=== PATIENT | male | born 1990 | race Two or more races ===

== ENCOUNTER 2021-01-20 09:59 | Inpatient (IN) | payer OTHER ==
[~2021-01-20] VITALS: Ht 167.6 cm; Wt 60.7 kg
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
--- NOTE | 2021-01-20 10:12 | NUR ---
COVID SWAB COLLECTED AND WALKED TO LAB.
--- NOTE | 2021-01-20 10:13 | NUR ---
TELEPHONE CALL FROM [facility]LOOD [facility]ANK STATING THAT THEY WILL NOT SEND EMERGENCY RELEASE BLOOD W/O PURPLE SLIP FROM NURSE. PRIMARY RN UPDATED.
[2021-01-20] MEDS ORDERED: PRED1TAB19 PO (10:17)
[2021-01-20] MEDS ORDERED: OMEP-110 PO (10:17)
[2021-01-20] MEDS ORDERED: METO5TAB57 PO (10:17)
[2021-01-20] MEDS ORDERED: FERR324T5 PO (10:17)
[2021-01-20] MEDS ORDERED: LEVE500T53 PO (10:17)
[2021-01-20] MEDS ORDERED: ZINC100T PO (10:17)
[2021-01-20] MEDS ORDERED: PANTOPRAZOLE 80 MG in SODIUM CHLORIDE 0.9% 50 ML IV ONE (10:30)
[2021-01-20] MEDS ORDERED: PANTOPRAZOLE 80 MG in SODIUM CHLORIDE 0.9% 100 ML IV SCH (10:30)
--- NOTE | 2021-01-20 10:34 | NUR ---
PT MOVED TO TRAUMA 4, ASSUMED PT CARE.
[2021-01-20 10:39] LABS: BASOPHILS % (AUTO) 1 % (0-1); EOSINOPHILS % (AUTO) 1 % (1-7); LYMPHOCYTES % (AUTO) 31 % (22-44); MEAN CORPUSCULAR HEMOGLOBIN 26.6 pg (27.5-34.5); MEAN CORPUSCULAR HGB CONC 32.9 g/dL (33.2-36.2); MONOCYTES % (AUTO) 9 % (2-9); NEUTROPHILS % (AUTO) 58 % (42-75); PLATELET COUNT 287 x10^3/uL (130-400); RED BLOOD COUNT 3.66 x10^6/uL (4.38-5.82); RED CELL DISTRIBUTION WIDTH 16.5 % (9.4-14.8)
[2021-01-20 10:46] LABS: ALANINE AMINOTRANSFERASE 17 U/L (12-78); ALBUMIN 2.8 g/dL (3.4-5.0); CALCIUM 8.2 mg/dL (8.5-10.1); CHLORIDE 108 mmol/L (98-107)
[2021-01-20 10:48] LABS: ALKALINE PHOSPHATASE 48 U/L (45-117); BILIRUBIN,TOTAL 2.4 mg/dL (0.2-1.0); TOTAL PROTEIN 4.9 g/dL (6.4-8.2)
[2021-01-20 10:56] LABS: ANION GAP 3 mmol/L (5-15)
[2021-01-20 11:17] VITALS: BP 108/57
[2021-01-20 11:27] VITALS: BP 89/45
[2021-01-20] MEDS ORDERED: NOREPINEPHRINE 8 MG in SODIUM CHLORIDE 0.9% 242 ML IV PRN ×2 (11:30→14:00)
[2021-01-20 11:50] VITALS: BP 119/53
--- NOTE | 2021-01-20 11:50 | NUR ---
PT TO CT WITH RN ESCORT.
--- NOTE | 2021-01-20 12:04 | NUR ---
PT RTN FROM CT, TOLLERATED WELL.
[2021-01-20 12:08] VITALS: BP 138/81
[2021-01-20] MEDS ORDERED: OMNIPAQUE 350 MG/ML, 100ML BOTTLE ONE (12:12)
--- NOTE | 2021-01-20 12:30 | NUR ---
DR GOOD AT BEDSIDE FOR CENTRAL LINE PLACEMENT. DR GOOD EXPLAINED PROCEDURE TO PT. PT VERBALIZES UNDERSTANDING.
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
[2021-01-20] MEDS ORDERED: FENTANYL PF 100 MCG/2ML ONE (13:01)
[2021-01-20] MEDS: FENTANYL PF 100 MCG/2ML IVPush PRN ×2 (13:02→15:48)
--- NOTE | 2021-01-20 13:23 | NUR ---
ZIEGLER CATHETER INSERTED W/O DIFFICULTY. PER DR CHAVIS BLADDER IS VERY FULL AND DISTENDED. URINE DRAINED AT 250ML AT A TIME, WITH BP CHECKS. PT TOLLERATING WELL.
--- NOTE | 2021-01-20 13:24 | NUR ---
DR HARRIS AT BEDSIDE.
[2021-01-20 13:45] LABS: BASOPHILS % (AUTO) 1 % (0-1); EOSINOPHILS % (AUTO) 1 % (1-7); LYMPHOCYTES % (AUTO) 30 % (22-44); MEAN CORPUSCULAR HGB CONC 33.6 g/dL (33.2-36.2); MONOCYTES % (AUTO) 9 % (2-9); NEUTROPHILS % (AUTO) 60 % (42-75); PLATELET COUNT 222 x10^3/uL (130-400); RED BLOOD COUNT 4.27 x10^6/uL (4.38-5.82); RED CELL DISTRIBUTION WIDTH 16.5 % (9.4-14.8)
--- NOTE | 2021-01-20 13:46 | NUR ---
DR LOPEZ AT BEDSIDE. PT ASSESSMENT REVIEWED AND QUESTIONS ANSWERED. POC DISCUSSED.
[2021-01-20] MEDS ORDERED: MORP-52 PO (13:59)
[2021-01-20] MEDS ORDERED: MORPHINE IR PO (13:59)
--- NOTE | 2021-01-20 13:59 | NUR ---
SBAR RPT TO BIOMETRICS ANALYST, RIYA.
[2021-01-20] MEDS ORDERED: PROPOFOL 10 MG/ML, 20ML IVPush ONE (14:00)
[2021-01-20] MEDS ORDERED: PROPOFOL 10 MG/ML, 20ML ONE (14:10)
[2021-01-20] MEDS ORDERED: KETAMINE 10 MG/ML, 20ML ONE (14:12)
[2021-01-20] MEDS: SODIUM CHLORIDE 0.9% 1,000 ML IV SCH (14:48)
[2021-01-20 15:18] LABS: HCT (SEDRATE) 37.2 % (39.2-51.8)
[2021-01-20] MEDS: LEVETIRACETAM 500 MG in SODIUM CHLORIDE 0.9% 100 ML IV SCH (15:42)
[2021-01-20] MEDS ORDERED: KETAMINE 10 MG/ML, 20ML IV ONE (16:00)
[2021-01-20] MEDS ORDERED: methylPREDNISolone SOD SUCC 40 MG/ML ONE (16:01)
[2021-01-20] MEDS: methylPREDNISolone SOD SUCC 40 MG/ML IV SCH (16:04)
--- NOTE | 2021-01-20 16:10 | NUR ---
TASK RN NOTE: PT SITTING UP, RESPIRATIONS EVEN AND UNLABORED ON NC O2. NAD NOTED AT THIS TIME. PT VERBALIZES DECREASE IN PAIN FOLLOWING MED ADMINISTRATION BY PRIMARY RN. PT MAKES CONVERSATION WITH OFFICERS, WHO REMAIN AT BEDSIDE. SIDE RAILS UP, CUFFS IN PLACE.
[2021-01-20 16:55] LABS: MICROSCOPIC AUTO
[2021-01-20] MEDS ORDERED: DIPHENHYDRAMINE 50 MG/ML, 1ML ONE (16:57)
--- NOTE | 2021-01-20 16:57 | NUR ---
CALLED DR LOPEZ AND UPDATED ON PT PROGRESS. NEW ORDER REC'D FOR JILL. PLAN IS FOR PT TO BE MONITORED CLOSELY OVERNIGHT IN ICU.
[2021-01-20] MEDS: DIPHENHYDRAMINE 50 MG/ML, 1ML IVPush PRN (17:12)
--- NOTE | 2021-01-20 17:45 | NUR ---
PT TRANSFERED ONTO HOSPITAL BED FOR COMFORT.
[2021-01-20] MEDS ORDERED: HYDROmorphone 1 MG/ML, 1ML INJ ONE (19:16)
--- NOTE | 2021-01-20 19:16 | NUR ---
SBAR RPT TO VENESSA GAITAN.
--- NOTE | 2021-01-20 19:22 | NUR ---
REPORT FROM ANGELA ASSUMED CARE OF PT, PT WRITHING IN PAIN, MEDICATED FOR PAIN AT THIS TIME
[2021-01-20] MEDS: HYDROmorphone 2 MG/ML, 1ML IVPush PRN (19:24)
[2021-01-20] MEDS ORDERED: ONDANSETRON 2MG/ML, 2ML ONE (19:25)
[2021-01-20] MEDS: ONDANSETRON 2MG/ML, 2ML IVPush PRN (19:29)
--- NOTE | 2021-01-20 19:29 | NUR ---
MEDICATED PER MAR FOR NAUSEA
--- NOTE | 2021-01-20 20:12 | NUR ---
pt in nad resting with guards at bs
--- NOTE | 2021-01-20 21:03 | NUR ---
report to kendall in ccu to room with 2 rns and 2 guards
[2021-01-20] MEDS: PANTOPRAZOLE 40 MG IV IVPush SCH (22:04)
[2021-01-21] MEDS: HYDROmorphone 2 MG/ML, 1ML IVPush PRN ×5 (01:05→21:42)
[2021-01-21] MEDS: SODIUM CHLORIDE 0.9% 1,000 ML IV SCH ×2 (02:30→17:22)
[2021-01-21] MEDS: methylPREDNISolone SOD SUCC 40 MG/ML IV SCH ×2 (04:04→15:18)
[2021-01-21] MEDS: LEVETIRACETAM 500 MG in SODIUM CHLORIDE 0.9% 100 ML IV SCH ×2 (04:04→15:17)
[2021-01-21] MEDS: DIPHENHYDRAMINE 50 MG/ML, 1ML IVPush PRN ×4 (04:37→23:12)
[2021-01-21 04:39] LABS: BASOPHILS % (AUTO) 0 % (0-1); EOSINOPHILS % (AUTO) 0 % (1-7); LYMPHOCYTES % (AUTO) 22 % (22-44); MEAN CORPUSCULAR HEMOGLOBIN 28.5 pg (27.5-34.5); MEAN PLATELET VOLUME 7.1 fL (7.4-10.4); MONOCYTES % (AUTO) 8 % (2-9); NEUTROPHILS % (AUTO) 70 % (42-75); PLATELET COUNT 222 x10^3/uL (130-400); RED BLOOD COUNT 4.25 x10^6/uL (4.38-5.82); RED CELL DISTRIBUTION WIDTH 16.1 % (9.4-14.8)
[2021-01-21 04:43] LABS: ALBUMIN 2.8 g/dL (3.4-5.0); ANION GAP 4 mmol/L (5-15); CALCIUM 8.1 mg/dL (8.5-10.1); CHLORIDE 104 mmol/L (98-107)
[2021-01-21 04:46] LABS: ALANINE AMINOTRANSFERASE 21 U/L (12-78); ALKALINE PHOSPHATASE 52 U/L (45-117); BILIRUBIN,TOTAL 1.7 mg/dL (0.2-1.0); CREATININE 0.73 mg/dL (0.7-1.3); TOTAL PROTEIN 5.2 g/dL (6.4-8.2)
[2021-01-21 05:05] LABS: ANISOCYTOSIS 1+; OVALOCYTES 1+; POLYCHROMASIA 1+
[2021-01-21 05:12] LABS: <PLATELET ESTIMATE> ADEQUATE; <PLT MORPHOLOGY> NORMAL PLT MORPH
[2021-01-21] MEDS: ONDANSETRON 2MG/ML, 2ML IVPush PRN ×2 (08:32→19:47)
[2021-01-21] MEDS: PANTOPRAZOLE 40 MG IV IVPush SCH ×2 (08:32→18:30)
[2021-01-21] MEDS: DICYCLOMINE 10 MG CAPSULE PO PRN (14:25)
[2021-01-21 16:20] VITALS: BP 102/62
[2021-01-21 18:38] VITALS: BP 112/65
[2021-01-21 18:57] VITALS: BP 107/71
[2021-01-21 19:51] VITALS: BP 114/66
[2021-01-21 20:06] VITALS: BP 115/58
[2021-01-21] MEDS ORDERED: OCTREOTIDE 100MCG/ML, 1ML (0.1MG/ML) SQ STA (21:11)
[2021-01-21] MEDS ORDERED: OCTREOTIDE 500 MCG in SODIUM CHLORIDE 0.9% 99 ML IV ONE (21:18)
[2021-01-21] MEDS ORDERED: OCTREOTIDE 50 MCG/ML, 1ML (0.05MG/ML) IVPush STA (21:20)
[2021-01-22] MEDS: LEVETIRACETAM 500 MG in SODIUM CHLORIDE 0.9% 100 ML IV SCH (03:28)
[2021-01-22] MEDS: methylPREDNISolone SOD SUCC 40 MG/ML IV SCH ×2 (03:29→15:09)
[2021-01-22] MEDS: HYDROmorphone 2 MG/ML, 1ML IVPush PRN ×2 (03:30→09:22)
[2021-01-22 04:12] LABS: BASOPHILS % (AUTO) 0 % (0-1); EOSINOPHILS % (AUTO) 0 % (1-7); LYMPHOCYTES % (AUTO) 18 % (22-44); MEAN CORPUSCULAR HEMOGLOBIN 28.6 pg (27.5-34.5); MEAN CORPUSCULAR HGB CONC 34.1 g/dL (33.2-36.2); MEAN PLATELET VOLUME 7.6 fL (7.4-10.4); MONOCYTES % (AUTO) 8 % (2-9); NEUTROPHILS % (AUTO) 75 % (42-75); PLATELET COUNT 237 x10^3/uL (130-400); RED BLOOD COUNT 5.02 x10^6/uL (4.38-5.82); RED CELL DISTRIBUTION WIDTH 16.2 % (9.4-14.8)
[2021-01-22 04:14] LABS: ANION GAP 5 mmol/L (5-15); BILIRUBIN, DIRECT 0.4 mg/dL (0.1-0.2); CHLORIDE 103 mmol/L (98-107)
[2021-01-22 04:15] LABS: BILIRUBIN,INDIRECT 1.5 mg/dL (0.0-2.0); BILIRUBIN,TOTAL 1.9 mg/dL (0.2-1.0)
[2021-01-22 04:28] VITALS: BP 106/76
[2021-01-22] MEDS: DIPHENHYDRAMINE 50 MG/ML, 1ML IVPush PRN ×4 (04:44→21:12)
[2021-01-22] MEDS: PANTOPRAZOLE 40 MG IV IVPush SCH ×2 (05:57→18:24)
[2021-01-22] MEDS: SODIUM CHLORIDE 0.9% 1,000 ML IV SCH (06:02)
[2021-01-22] MEDS: TAMSULOSIN 0.4 MG CAP.ER.24H PO SCH (09:46)
[2021-01-22] MEDS ORDERED: FERROUS SULFATE 325 MG TABLET ONE (10:19)
[2021-01-22] MEDS: FERROUS SULFATE 325 MG TABLET PO SCH (10:23)
[2021-01-22] MEDS: ONDANSETRON 2MG/ML, 2ML IVPush PRN (10:25)
[2021-01-22] MEDS: morphine SULFATE 15 MG TAB.IR PO PRN (14:55)
[2021-01-22] MEDS: METOCLOPRAMIDE 5 MG/ML, 2ML IVPush SCH ×2 (15:09→21:04)
[2021-01-22 19:37] VITALS: BP 105/66
[2021-01-22] MEDS: LEVETIRACETAM 500 MG TABLET PO SCH (21:04)
[2021-01-23 03:00] VITALS: BP 112/64
[2021-01-23] MEDS: METOCLOPRAMIDE 5 MG/ML, 2ML IVPush SCH ×4 (03:03→21:09)
[2021-01-23] MEDS: DIPHENHYDRAMINE 50 MG/ML, 1ML IVPush PRN ×3 (03:03→21:10)
[2021-01-23] MEDS: morphine SULFATE 15 MG TAB.IR PO PRN ×2 (03:03→15:33)
[2021-01-23] MEDS: methylPREDNISolone SOD SUCC 40 MG/ML IV SCH ×2 (03:44→15:31)
[2021-01-23 05:23] LABS: BASOPHILS % (AUTO) 0 % (0-1); EOSINOPHILS % (AUTO) 0 % (1-7); LYMPHOCYTES % (AUTO) 17 % (22-44); MEAN CORPUSCULAR HEMOGLOBIN 28.7 pg (27.5-34.5); MEAN CORPUSCULAR HGB CONC 33.9 g/dL (33.2-36.2); MEAN PLATELET VOLUME 7.7 fL (7.4-10.4); MONOCYTES % (AUTO) 8 % (2-9); NEUTROPHILS % (AUTO) 75 % (42-75); PLATELET COUNT 226 x10^3/uL (130-400); RED BLOOD COUNT 4.62 x10^6/uL (4.38-5.82); RED CELL DISTRIBUTION WIDTH 16.3 % (9.4-14.8)
[2021-01-23] MEDS: PANTOPRAZOLE 40 MG IV IVPush SCH (06:13)
[2021-01-23 06:48] VITALS: BP 127/78
[2021-01-23] MEDS: LEVETIRACETAM 500 MG TABLET PO SCH ×2 (08:09→21:09)
[2021-01-23] MEDS: FERROUS SULFATE 325 MG TABLET PO SCH (08:10)
[2021-01-23] MEDS: TAMSULOSIN 0.4 MG CAP.ER.24H PO SCH (08:10)
[2021-01-23] MEDS ORDERED: CHLORHEXIDINE 15 ML UDC ONE (09:16)
[2021-01-23] MEDS ORDERED: PROPOFOL 10 MG/ML, 20ML ONE (09:50)
[2021-01-23] MEDS ORDERED: hydrALAzine 20 MG/ML, 1ML IV PRN (10:30)
[2021-01-23] MEDS ORDERED: DIPHENHYDRAMINE 50 MG/ML, 1ML IVPush PRN ×2 (10:30)
[2021-01-23] MEDS ORDERED: FENTANYL PF 100 MCG/2ML IV PRN (10:30)
[2021-01-23] MEDS ORDERED: DIAZEPAM 5 MG/ML, 2ML IVPush PRN (10:30)
[2021-01-23] MEDS ORDERED: PROMETHAZINE 25 MG/ML, 1ML IVPush PRN (10:30)
[2021-01-23] MEDS ORDERED: HYDROmorphone 1 MG/ML, 1ML INJ IVPush PRN (10:30)
[2021-01-23] MEDS ORDERED: PROMETHAZINE 12.5 MG SUPP PR PRN (10:30)
[2021-01-23] MEDS ORDERED: MIDAZOLAM 1 MG/ML, 2ML IV PRN (10:30)
[2021-01-23] MEDS ORDERED: MEPERIDINE/PF 25MG/0.5ML IVPush PRN (10:30)
[2021-01-23] MEDS ORDERED: EPHEDRINE 50 MG/ML, 1ML IVPush PRN (10:30)
[2021-01-23] MEDS ORDERED: ONDANSETRON 2MG/ML, 2ML IVPush PRN (10:30)
[2021-01-23] MEDS ORDERED: ALBUTEROL SULFATE 2.5 MG/3 ML NPPB PRN (10:30)
[2021-01-23] MEDS ORDERED: OXYcodone 5 MG/5 ML ORAL.SOL UDC PO PRN (10:30)
[2021-01-23] MEDS ORDERED: LABETALOL 5MG/ML, 20ML IV PRN (10:30)
[2021-01-23 12:46] VITALS: BP 132/78
[2021-01-23 18:38] VITALS: BP 112/56
[2021-01-23] MEDS ORDERED: MESALAMINE 1,000 MG SUPP.RECT PR SCH (21:00)
[2021-01-23] MEDS: PANTOPRAZOLE 40MG TABLET PO SCH (21:09)
[2021-01-24 01:22] VITALS: BP 105/57
[2021-01-24] MEDS: morphine SULFATE 15 MG TAB.IR PO PRN ×4 (01:36→15:36)
[2021-01-24] MEDS: methylPREDNISolone SOD SUCC 40 MG/ML IV SCH ×2 (03:12→14:57)
[2021-01-24] MEDS: METOCLOPRAMIDE 5 MG/ML, 2ML IVPush SCH ×3 (03:13→14:57)
[2021-01-24] MEDS: DIPHENHYDRAMINE 50 MG/ML, 1ML IVPush PRN ×3 (03:13→15:35)
[2021-01-24] MEDS: DICYCLOMINE 10 MG CAPSULE PO PRN (05:11)
[2021-01-24] MEDS: PANTOPRAZOLE 40MG TABLET PO SCH ×2 (05:11→15:36)
[2021-01-24 06:40] VITALS: BP 111/65
[2021-01-24] MEDS: TAMSULOSIN 0.4 MG CAP.ER.24H PO SCH (08:13)
[2021-01-24] MEDS: FERROUS SULFATE 325 MG TABLET PO SCH (08:14)
[2021-01-24] MEDS: LEVETIRACETAM 500 MG TABLET PO SCH (08:14)
[2021-01-24] MEDS ORDERED: PANT40TA6 PO (10:45)
[2021-01-24] MEDS ORDERED: DICY10CA3 PO (10:45)
[2021-01-24] MEDS ORDERED: TAMS-11 PO (10:45)
[2021-01-24] MEDS ORDERED: [UNRECOGNIZED DRUG - CODE] PR (10:45)
[2021-01-24] MEDS ORDERED: PRED20TA PO (10:51)
[2021-01-24 15:11] VITALS: BP 109/57
== END 2021-01-24 18:26 | DRG 385 ==
LOC: ED 10:53 → SUATTDRO 11:06 → EDIP 11:09 → CCU 21:17 → 4WST 01-21 16:43 → CCU 01-21 20:30 → 4NW 01-22 15:20
PROVIDERS: ADMIT Internal Medicine; ATTEND Internal Medicine
PROC: 30233R1 Transfusion of Nonautologous Platelets into Peripheral Vein, Percutaneous Approach (ICD-10-PCS; 2021-01-20)
PROC: 0DJ08ZZ Inspection of Upper Intestinal Tract, Via Natural or Artificial Opening Endoscopic (ICD-10-PCS; 2021-01-20)
PROC: 0DJD8ZZ Inspection of Lower Intestinal Tract, Via Natural or Artificial Opening Endoscopic (ICD-10-PCS; 2021-01-20)
PROC: 02HV33Z Insertion of Infusion Device into Superior Vena Cava, Percutaneous Approach (ICD-10-PCS; 2021-01-20)
PROC: B548ZZA Ultrasonography of Superior Vena Cava, Guidance (ICD-10-PCS; 2021-01-20)
PROC: 30233K1 Transfusion of Nonautologous Frozen Plasma into Peripheral Vein, Percutaneous Approach (ICD-10-PCS; principal; 2021-01-20 18:00)
PROC: 30233N1 Transfusion of Nonautologous Red Blood Cells into Peripheral Vein, Percutaneous Approach (ICD-10-PCS; 2021-01-20 18:00)
PROC: 0DJD8ZZ Inspection of Lower Intestinal Tract, Via Natural or Artificial Opening Endoscopic (ICD-10-PCS; 2021-01-23)
DX: K50.00 Crohn's disease of small intestine without complications (principal); R57.8 Other shock; D62 Acute posthemorrhagic anemia; K56.7 Ileus, unspecified; K63.3 Ulcer of intestine; Z88.0 Allergy status to penicillin; Z20.822 Contact with and (suspected) exposure to COVID-19; D50.9 Iron deficiency anemia, unspecified; E88.09 Other disorders of plasma-protein metabolism, not elsewhere classified; G40.909 Epilepsy, unspecified, not intractable, without status epilepticus; G89.29 Other chronic pain; H40.9 Unspecified glaucoma; K66.0 Peritoneal adhesions (postprocedural) (postinfection); Z83.3 Family history of diabetes mellitus; Z86.718 Personal history of other venous thrombosis and embolism; Z87.891 Personal history of nicotine dependence; Z90.49 Acquired absence of other specified parts of digestive tract; Z90.81 Acquired absence of spleen; Z93.3 Colostomy status; K52.9 Noninfective gastroenteritis and colitis, unspecified; R33.9 Retention of urine, unspecified
CPT/HCPCS: 36415; 36430; 36556; 71045; 74018; 74021; 74174; 76700; 80048; 80053; 80299; 81001; 82247; 82248; 82397; 82657; 82962; 83993; 85014; 85018; 85025; 85651; 86140; 86480; 86780; 86850; 86900; 86923; 87040; 87046; 87081; 87427; 87635; 87806; 96365; 96366; 96375; 99152; 99153; 99292; G0378; J1170; J1953; J2354; J2405; J2704; J3010; Q9967; C9113; G0475; J1200; J2765; J2920; J7030; P9016; P9017; P9035